=== PATIENT | male | born 1955 | race Caucasian/White ===

== ENCOUNTER 2018-12-15 14:05 | Outpatient (CLI) | payer OTHER | END 2018-12-15 23:59 | disposition home or self-care (01) | LOC: CFH 14:05 → RAD 23:59 | PROVIDERS: ATTEND Nurse Practitioner Critical Care Medicine | DX: S06.330D Contusion and laceration of cerebrum, unspecified, without loss of consciousness, subsequent encounter (principal); G93.89 Other specified disorders of brain; X58.XXXD Exposure to other specified factors, subsequent encounter | CPT/HCPCS: 70450 ==